=== PATIENT | male | born 1970 | race Caucasian/White ===

== ENCOUNTER 2017-01-21 20:33 | Emergency (ER) | payer OTHER ==
[~2017-01-21] VITALS: Ht 185.4 cm; Wt 96.9 kg
[2017-01-21 20:35] VITALS: TEMP 36.7; Ht 185.4 cm; Wt 96.9 kg
[2017-01-21] MEDS ORDERED: SODIUM CHLORIDE 0.9% 1000ML 2,000 ML IV STA (20:45)
[2017-01-21] MEDS ORDERED: KETOROLAC TROMETHAMINE 30 MG/ML VIAL IV STA (20:45)
[2017-01-21] MEDS ORDERED: ACETAMINOPHEN 500 MG TAB PO STA (20:45)
[2017-01-21] MEDS ORDERED: PHEN-594 PO (21:03)
--- NOTE | 2017-01-21 21:04 | EMERGENCY ROOM VISIT NOTE ---
History Report prepared by Darrick: Jose Angel Borja Under the Supervision of: Dr. Derrick Ryo M.D. First contact with patient: 20:41 Chief Complaint: ILLNESS Stated Complaint: SORE THROAT, HAM, DIZZY, HOT & COLD, NAUSEA History of Present Illness The patient is a 46 year old male who presents to the Emergency Room with complaints of a waxing and waning sore throat starting 3-4 days ago which is worse when he sleeps. He states that was in [place], and he was in the sun all week, and he feels dehydrated. He additionally states that he has some ear pain, fever, congestion, a cough, and back pain. He denies any diarrhea, abdominal pain, and vomiting. The patient additionally states that he bit his tongue after a crash, and afterwards he had to siphon non-potable water, so the water was in his mouth. He states that he has been taking Mucinex, though it is not helping, and he states that he has not been urinating very often. The patient states that he has been unable to eat due to the throat pain. He states that he has never had pneumonia before, though this week someone around him had croup, and he was sharing food with him. Source of History: patient Onset: 3-4 days ago Position: throat Timing: waxes/wanes Modifying Factors (Worsening): other (sleep) Associated Symptoms: + fevers, + cough, + back pain, No vomiting, No abdominal pain, No diarrhea Note: Associated symptoms: ear pain and congestion Review of Systems See HPI for pertinent positives & negatives. A total of 10 systems reviewed and were otherwise negative. Past Medical & Surgical Medical Problems: (1) Appendectomy Family History Diabetes mellitus FH: heart disease Social History Smoking Status: Former Smoker Alcohol Use: none Occupation Status: employed Current/Historical Medications Scheduled Prednisone (Prednisone), 2 TAB PO DAILY Scheduled PRN [id number] W/ Apap (Mucinex Fast-Max Cold Flu), 2 TABS PO Q12H PRN for Cough Allergies Coded Allergies: Penicillins (Unverified Allergy, Unknown, ., 01/21/17) Physical Exam Vital Signs Date Time Temp Pulse Resp B/P (MAP) Pulse Ox O2 Delivery O2 Flow Rate FiO2 01/21/17 22:51 125/76 98 Room Air 01/21/17 22:48 66 23 01/21/17 22:33 65 18 01/21/17 22:18 66 17 01/21/17 22:03 66 18 01/21/17 21:57 67 01/21/17 21:54 65 18 134/84 97 Room Air 01/21/17 21:53 134/84 01/21/17 21:53 97 Room Air 01/21/17 20:35 36.7 81 20 118/80 95 Room Air Physical Exam GENERAL: Patient is in no acute distress. HEENT: Mild throat erythema. No exudate. Fluid behind both drums. No infection. There is a right sided tongue laceration which is healing without signs of infection. No acute trauma, normocephalic atraumatic, mucous membranes moist, moderate nasal congestion, no scleral icterus. NECK: Mild bilateral anterior cervical adenopathy. No stridor, no meningismus, trachea is midline. LUNGS: Diminished breath sounds but clear, no wheeze, no rhonchi HEART: Without murmurs gallops or rubs, regular rate and rhythm. ABDOMEN: Soft, nontender, bowel sounds positive, no hernias, no peritonitis. EXTREMITIES: No cyanosis or edema, full range of motion of all the joints without pain or difficulty, no signs for acute trauma. NEUROLOGIC: Oriented x 3, no acute motor or sensory deficits, no focal weakness. SKIN: No rash, no jaundice, no diaphoresis. Medical Decision & Procedures ER Provider Diagnostic Interpretation: Radiology results as stated below per my review and radiologist interpretation: CHEST ONE VIEW PORTABLE HISTORY: 46 years-old Male EVALUATE ALTERED MENTAL STATUS/WEAKNESS acute altered mental status with sore throat and headache. Nausea. Initial exam. COMPARISON: Chest radiograph 02/22/2009 TECHNIQUE: Portable upright AP view of the chest FINDINGS: Cardiomediastinal and hilar silhouettes are within normal limits. No pneumothorax, pleural effusion or focal airspace consolidation. Healed mid shaft left clavicular fracture redemonstrated. IMPRESSION: 1. No acute cardiopulmonary process. 2. Healed mid left clavicular fracture. The above report was generated using voice recognition software. It may contain grammatical, syntax or spelling errors. Electronically signed by: Braulio Oneill M.D. 01/21/2017 10:45 PM Dictated Date/Time: 01/21/2017 10:44 PM Laboratory Results 01/21/17 21:20 Red Blood Count 4.70, Mean Corpuscular Volume 90.6, Mean Corpuscular Hemoglobin 32.3, Mean Corpuscular Hemoglobin Concent 35.7, Mean Platelet Volume 9.5, Neutrophils (%) (Auto) 46.2, Lymphocytes (%) (Auto) 38.2, Monocytes (%) (Auto) 13.5, Eosinophils (%) (Auto) 1.1, Basophils (%) (Auto) 0.8, Neutrophils # (Auto ) 2.42, Lymphocytes # (Auto) 2.00, Monocytes # (Auto) 0.71, Eosinophils # (Auto ) 0.06, Basophils # (Auto) 0.04 01/21/17 21:20 Test 01/21/17 21:20 01/21/17 21:50 White Blood Count 5.24 K/uL (4.8-10.8) Red Blood Count 4.70 M/uL (4.7-6.1) Hemoglobin 15.2 g/dL (14.0-18.0) Hematocrit 42.6 % (42-52) Mean Corpuscular Volume 90.6 fL (80-100) Mean Corpuscular Hemoglobin 32.3 pg (25-34) Mean Corpuscular Hemoglobin Concent 35.7 g/dl (32-36) Platelet Count 228 K/uL (130-400) Mean Platelet Volume 9.5 fL (7.4-10.4) Neutrophils (%) (Auto) 46.2 % Lymphocytes (%) (Auto) 38.2 % Monocytes (%) (Auto) 13.5 % Eosinophils (%) (Auto) 1.1 % Basophils (%) (Auto) 0.8 % Neutrophils # (Auto) 2.42 K/uL (1.4-6.5) Lymphocytes # (Auto) 2.00 K/uL (1.2-3.4) Monocytes # (Auto) 0.71 K/uL (0.11-0.59) Eosinophils # (Auto) 0.06 K/uL (0-0.5) Basophils # (Auto) 0.04 K/uL (0-0.2) RDW Standard Deviation 42.3 fL (36.4-46.3) RDW Coefficient of Variation 12.7 % (11.5-14.5) Immature Granulocyte % (Auto) 0.2 % Immature Granulocyte # (Auto) 0.01 K/uL (0.00-0.02) Anion Gap 6.0 mmol/L (3-11) Est Creatinine Clear Calc Drug Dose 115.4 ml/min Estimated GFR () 107.9 Estimated GFR (Non- 93.1 BUN/Creatinine Ratio 15.1 (10-20) Calcium Level 9.0 mg/dl (8.5-10.1) Total Bilirubin 0.8 mg/dl (0.2-1) Aspartate Amino Transf (AST/SGOT) 134 U/L (15-37) Alanine Aminotransferase (ALT/SGPT) 335 U/L (12-78) Alkaline Phosphatase 69 U/L (45-117) Total Creatine Kinase 49 U/L (39-308) Total Protein 7.1 gm/dl (6.4-8.2) Albumin 3.4 gm/dl (3.4-5.0) Globulin 3.7 gm/dl (2.5-4.0) Albumin/Globulin Ratio 0.9 (0.9-2) Monoscreen NEG (NEG) Urine Color DK YELLOW Urine Appearance CLEAR (CLEAR) Urine pH 5.5 (4.5-7.5) Urine Specific [place] 1.024 (1.000-1.030) Urine Protein NEG (NEG) Urine Glucose (UA) NEG (NEG) Urine Ketones NEG (NEG) Urine Occult Blood NEG (NEG) Urine Nitrite NEG (NEG) Urine Bilirubin NEG (NEG) Urine Urobilinogen NEG (NEG) Urine Leukocyte Esterase NEG (NEG) Laboratory results reviewed by me. Medications Administered Medications (Trade) Dose Ordered Sig/Vianney Route Start Time Stop Time Status Last Admin Dose Admin Sodium Chloride 2,000 ml @ 999 mls/hr Q2H1M STAT IV 01/21/17 20:45 01/21/17 22:45 DC 01/21/17 21:48 999 MLS/HR Acetaminophen (Tylenol Tab) 1,000 mg NOW STAT PO 01/21/17 20:45 01/21/17 20:53 DC 01/21/17 21:48 1,000 MG Ketorolac Tromethamine (Toradol Inj) 30 mg NOW STAT IV 01/21/17 20:45 01/21/17 20:53 DC 01/21/17 21:48 30 MG Pseudoephedrine HCl (Sudafed Tab) 60 mg NOW STAT PO 01/21/17 22:39 01/21/17 22:41 DC 01/21/17 22:52 60 MG Prednisone (PredniSONE TAB) 60 mg NOW STAT PO 01/21/17 22:39 01/21/17 22:41 DC 01/21/17 22:53 60 MG ED Course 2040: The patient was evaluated in room C10. A complete history and physical exam was performed. 2044: Toradol Inj 30mg IV, Tylenol Tab 1000mg PO, Sodium Chloride 2000 ml @ 999 mls/hr IV 2237: I reevaluated the patient, and he is doing okay. He is Currently getting his fluids. 2238: Prednisone 60mg PO, Sudafed Tab 60mg PO 2302: I reassessed the patient, and I updated him on the treatment plan, and he is agreeable. Once he finishes his fluids he will be discharged home. Medical Decision Differential Diagnoses include: Strep pharyngitis, viral illness, sinusitis, bronchitis, otitis media, pneumonia, dehydration, and UTI There is no leukocytosis or concerning anemia. No significant electrolyte abnormality or kidney failure. There were some mild liver enzyme elevations consistent with possibly viral illness. Scurry testing was negative. Urinalysis does not show infection or hematuria. Strep testing was negative. Chest film does not show pneumonia, mediastinal widening or CHF. On exam, the patient's lungs were clear. He was not hypoxic or toxic. He did appear slightly dehydrated. The patient received 2 L of IV saline, he received IV Toradol, oral Tylenol. He received oral prednisone and oral Sudafed. The patient is doing well. This illness is very likely viral. I am going to have him on prednisone to help with the throat pain and swelling. Sudafed over- the-counter for congestion. Motrin/Tylenol for aches and pain. Rest and hydration have been encouraged. He will follow with his doctors office and return here for worsening symptoms. He was told to have his liver enzymes rechecked once feeling better. Medication Reconcilliation Current Medication List: was personally reviewed by me Blood Pressure Screening Patient's blood pressure: Normal blood pressure Impression Primary Impression: Dehydration Additional Impressions: Flu-like symptoms Pharyngitis Scribe Attestation The scribe's documentation has been prepared under my direction and personally reviewed by me in its entirety. I confirm that the note above accurately reflects all work, treatment, procedures, and medical decision making performed by me. Departure Information Dispostion Home / Self-Care Prescriptions Prednisone (Prednisone) 20 Mg Tab 2 TAB PO DAILY for 5 Days, #10 TAB Prov: Derrick Roy M.D. 01/21/17 Referrals No Doctor, Assigned (PCP) Forms HOME CARE DOCUMENTATION FORM, IMPORTANT VISIT INFORMATION Patient Instructions My [facility] Additional Instructions fluids rest sudafed from behind the pharmacy counter for congestion stop the mucinex motrin and or tylenol for pain and aches prednisone as directed daily see maximo bach this week for a recheck return if worsening as we discussed Problem Qualifiers
[2017-01-21 21:32] LABS: BASO % 0.8 %; BASO ABS # 0.04 K/uL (0-0.2); COMPLETE YES; EOS % 1.1 %; HEMATOCRIT 42.6 % (42-52); IG% 0.2 %; LYMPH % 38.2 %; MEAN CELL VOLUME 90.6 fL (80-100); MEAN CORPUSCULAR HEMOGLOBIN 32.3 pg (25-34); MEAN CORPUSCULAR HGB CONC 35.7 g/dl (32-36); MEAN PLATELET VOLUME 9.5 fL (7.4-10.4); MONO % 13.5 %; NEUT % 46.2 %; PLATELET COUNT 228 K/uL (130-400); WHITE BLOOD COUNT 5.24 K/uL (4.8-10.8)
[2017-01-21 21:46] LABS: BUN/CREATININE RATIO 15.1 (10-20); CREATININE 0.96 mg/dl (0.60-1.40); POTASSIUM 3.4 mmol/L (3.5-5.1)
[2017-01-21 21:49] LABS: ALB/GLOB RATIO 0.9 (0.9-2)
[2017-01-21 21:53] VITALS: O2SAT 97
[2017-01-21 22:06] LABS: URINE APPEARANCE CLEAR (CLEAR); URINE BILIRUBIN NEG (NEG); URINE COLOR DK YELLOW; URINE NITRITE NEG (NEG); URINE PH 5.5 (4.5-7.5); URINE SPECIFIC GRAVITY 1.024 (1.000-1.030); UROBILINOGEN NEG (NEG)
[2017-01-21 22:07] LABS: MANUAL MICROSCOPIC REQUIRED? NO; REVIEW REQ? NO
[2017-01-21] MEDS ORDERED: PSEUDOEPHEDRINE HCL 30 MG TAB PO STA (22:39)
[2017-01-21] MEDS ORDERED: PRED20TA PO (22:42)
--- NOTE | 2017-01-21 22:46 | DIAGNOSTIC IMAGING REPORT ---
CHEST ONE VIEW PORTABLE HISTORY: 46 years-old Male EVALUATE ALTERED MENTAL STATUS/WEAKNESS acute altered mental status with sore throat and headache. Nausea. Initial exam. COMPARISON: Chest radiograph 02/22/2009 TECHNIQUE: Portable upright AP view of the chest FINDINGS: Cardiomediastinal and hilar silhouettes are within normal limits. No pneumothorax, pleural effusion or focal airspace consolidation. Healed mid shaft left clavicular fracture redemonstrated. IMPRESSION: 1. No acute cardiopulmonary process. 2. Healed mid left clavicular fracture. The above report was generated using voice recognition software. It may contain grammatical, syntax or spelling errors. Electronically signed by: Braulio Oneill M.D. 01/21/2017 10:45 PM Dictated Date/Time: 01/21/2017 10:44 PM
[2017-01-21 23:20] VITALS: BP 141/86; PULSE 65; O2SAT 96
== END 2017-01-21 23:20 | disposition home or self-care (01) ==
LOC: C.EDB 20:36 → C.EDC 23:20
DX: J02.9 Acute pharyngitis, unspecified (principal); E86.0 Dehydration; Z87.891 Personal history of nicotine dependence; Z88.0 Allergy status to penicillin; Z83.3 Family history of diabetes mellitus; Z82.49 Family history of ischemic heart disease and other diseases of the circulatory system